=== PATIENT | female | born 1995 | race Caucasian/White ===

== ENCOUNTER 2025-04-06 20:59 | Emergency (ER) | payer MEDICAID ==
[~2025-04-06] VITALS: Ht 165.1 cm; Wt 96.6 kg
[2025-04-06] MEDS ORDERED: ACETAMINOPHEN 325 MG TABLET ONE (21:30)
[2025-04-06] MEDS: ACETAMINOPHEN 325 MG TABLET PO ONE (21:31)
[2025-04-06] MEDS ORDERED: AMOX-430 PO (23:04)
[2025-04-06] MEDS ORDERED: AMOX/CLAVULANATE 875 MG TABLET ONE (23:17)
[2025-04-06] MEDS: AMOX/CLAVULANATE 875 MG TABLET PO ONE (23:21)
[2025-04-06 23:48] VITALS: BP 147/83; TEMP 98.7; O2SAT 99
== END 2025-04-06 23:48 | disposition home or self-care (01) ==
LOC: ER 21:54
DX: S01.81XA Laceration without foreign body of other part of head, initial encounter (principal); W01.198A Fall on same level from slipping, tripping and stumbling with subsequent striking against other object, initial encounter; Y93.01 Activity, walking, marching and hiking; Y92.480 Sidewalk as the place of occurrence of the external cause; Y99.8 Other external cause status
CPT/HCPCS: 70450-TC; 70486-TC

== ENCOUNTER 2025-04-20 13:41 | Emergency (ER) | payer MEDICAID, OTHER ==
[~2025-04-20] VITALS: Ht 165.1 cm; Wt 72.6 kg
[~2025-04-20 13:41] MED LIST: AMOX-430 PO
[2025-04-20 14:56] VITALS: BP 137/87; TEMP 97.9; O2SAT 99
== END 2025-04-20 14:56 | disposition home or self-care (01) ==
LOC: ER 14:08
DX: S01.81XD Laceration without foreign body of other part of head, subsequent encounter (principal); Z48.02 Encounter for removal of sutures; X58.XXXD Exposure to other specified factors, subsequent encounter